=== PATIENT | female | born 1950 | race Caucasian/White ===

== ENCOUNTER → 2019-01-11 | Outpatient (CLI) | payer MEDICARE ==
[2019-01-11 12:08] LABS: BASOPHILS # (AUTO) 0.1 (0.0-0.1); BASOPHILS % 0.8 % (0.0-1.0); EOSINOPHILS # (AUTO) 0.1 (0.0-0.4); EOSINOPHILS % 0.6 % (0.0-6.0); HEMATOCRIT 34.1 % (34.2-44.1); HEMOGLOBIN 11.1 g/dL (12.0-16.0); LYMPHOCYTES # (AUTO) 1.9 (1.0-3.2); LYMPHOCYTES % 24.3 % (18.0-39.1); MEAN CORPUSCULAR HEMOGLOBIN 27.5 pg (28-32); MEAN CORPUSCULAR HGB CONC 32.6 g/dL (31-35); MEAN CORPUSCULAR VOLUME 84.4 fL (81-99); MONOCYTES # (AUTO) 0.5 (0.2-0.8); MONOCYTES % 6.3 % (4.4-11.3); NEUTROPHILS # (AUTO) 5.4 (2.1-6.9); NEUTROPHILS % 67.5 % (38.7-80.0); PLATELET COUNT 280 x10e3/uL (140-360); RED BLOOD COUNT 4.04 x10e6/uL (3.6-5.1); RED CELL DISTRIBUTION WIDTH 13.7 % (11.7-14.4)
--- NOTE | 2019-01-11 12:35 | Diagnostic Imaging Report ---
MRI of the right forefoot without contrast. History: Foot pain. Blister. Fourth and fifth toe infection. Technique: Multiplanar multisequence MRI of the right foot without contrast Comparison: None Findings: Mild soft tissue swelling about the fourth and fifth toes. No focal fluid collection or drainable abscess is seen. No underlying bone marrow edema or cortical destruction is seen to suggest osteomyelitis. No acute fracture, subluxation or avascular necrosis. Mild scattered degenerative change. No ligamentous or tendon tear. The visualized neurovascular bundles are intact. The visualized muscles are normal in size, signal intensity and morphology. Impression: Mild soft tissue edema about the fourth and fifth toes could be due to cellulitis. No drainable fluid collection/abscess is seen. No evidence of osteomyelitis. Signed by: Dr. Fredi Jaeger M.D. on 01/11/2019 12:31 PM
== END ==
LOC: MRI 10:43
PROVIDERS: ATTEND Podiatrist Foot & Ankle Surgery
DX: L02.611 Cutaneous abscess of right foot (principal)
CPT/HCPCS: 36415; 83036; 84520; 85025; 86039; 86431